=== PATIENT | male | born 1955 | race African-American/Black ===

== ENCOUNTER → 2024-08-30 06:45 | Outpatient (REF) | payer MEDICARE, MEDICAID, SELFPAY ==
[2024-08-30 08:50] LABS: Hematocrit 32.4 % (40-54); Hemoglobin 10.1 g/dL (13.0-16.5); Mean Corp Hgb Conc 31.2 g/dL (32-36); Mean Corpuscular Hgb 28.3 pg (27.0-32.0); Mean Corpuscular Volume 90.8 fL (80-94); Mean Platelet Vol. 9.3 fl (6.2-12.0); POSITIVE COUNT YES; RBC Distribution Width CV 17.4 % (11.6-14.6); RBC Distribution Width SD 58.3 fl (35.1-43.9); Red Blood Count 3.57 M/mm3 (4.6-6.2); White Blood Count 9.6 K/mm3 (4.4-11.0)
[2024-08-30 09:13] LABS: Platelet Count 765 K/mm3 (150-450); Scan Indicated on CBC? Y/N YES- FLAGS NOTED
[2024-09-09 09:01] LABS: Pathologist Review Reviewed
== END ==
LOC: OLS.SANC 06:45
DX: E43 Unspecified severe protein-calorie malnutrition (principal); A41.54 Sepsis due to Acinetobacter baumannii; I10 Essential (primary) hypertension; E78.5 Hyperlipidemia, unspecified
CPT/HCPCS: 36415; 85027